=== PATIENT | male | born 1970 | race Caucasian/White ===

== ENCOUNTER 2021-05-03 13:55 | Emergency (ER) | payer OTHER, SELFPAY ==
[2021-05-03 13:56] VITALS: BP 126/87; PULSE 81; RESP 16; TEMP 36.3; O2SAT 99
--- NOTE | 2021-05-03 15:06 | ED.GENADULT ---
HPI - General Adult General Chief complaint: Skin/Abscess/Foreign Body Stated complaint: abcess ro right axilla Time Seen by Provider: 05/03/21 13:59 Source: patient Mode of arrival: ambulatory Limitations: no limitations History of Present Illness HPI narrative: Patient presents for evaluation of raised erythematous lesion to the right axillary region. He states he had a firm pliable mass about the size of a pea for the past several months. Mass increased to the size of a marble within the last few days. He contacted his primary care provider and has an appointment scheduled for this coming week. However it has since become erythematous and painful. He noted a small amount of drainage from the area yesterday. Denies any fever, chills, nausea, vomiting. He is not diabetic. He smokes 1 pack/day. No additional complaints or concerns. Related Data Allergies Allergy/AdvReac Type Severity Reaction Status Date / Time Penicillins Allergy Mild Unknown Verified 05/03/21 14:05 Review of Systems Review of Systems: CONSTITUTIONAL: Denies fever, chills, or sweats. EYES: Denies visual changes, redness, or discharge. ENT: Denies rhinorrhea, congestion, sore throat, or otalgia. CARDIOVASCULAR: Denies chest pain, palpitations, or edema. RESPIRATORY: Denies cough or dyspnea. GASTROINTESTINAL: Denies abdominal pain, nausea, vomiting, or diarrhea. GENITOURINARY: Denies dysuria or hematuria. SKIN: Reports erythematous raised lesion to the right axillary region MUSCULOSKELETAL: Reports pain in right axillary region. Denies back pain NEUROLOGIC: Denies headache, numbness, dizziness, or weakness. PSYCHIATRIC: Denies anxiety or depression. [facility] Past Medical History Medical History Hypertension Surgical History Surgical History H/O umbilical hernia repair Family History Family History Mother Colon cancer Father Colon cancer Social History Social History Smoking packs per day: 1 Smoking cigarettes per day: 20.0 Smoking status: Current every day smoker Alcohol intake: current Alcohol use details: social Substance use: never Living arrangements: with family Gender identity (if verbalized by the patient): Male Sexual Orientation (if Verbalized by the Patient): Straight or Heterosexual Spiritual care concerns: No Exam Narrative: GENERAL: Well-appearing, well-nourished, and in no acute distress. HEAD: Normocephalic, atraumatic. EYES: PERRLA and EOMI. ENT: Nares clear, no rhinorrhea or epistaxis. Mucous membranes moist. Oropharynx without tonsillar hypertrophy exudate or other lesions. Bilateral TMs pearly white nonbulging NECK: Supple. No adenopathy or masses. No carotid bruits or JVD CHEST: Clear to auscultation. No respiratory distress. No wheezes rales or rhonchi HEART: Regular rate and rhythm. No murmur heard. Normal peripheral pulses. ABDOMEN: Soft, nontender, nondistended, normal active bowel sounds. EXTREMITIES: Tenderness noted to the right axillary mass. Normal range of motion. No edema. SKIN: Approximately 3.5 cm raised erythematous fluctuant lesion to the right axillary region with surrounding erythema NEURO: No focal deficits. Alert and oriented x3. PSYCH: Normal mood and affect. Course Course Emergency Course: This is a 50-year-old male who presented with an erythematous swollen lesion to the right axillary region. Exam was consistent with infected sebaceous cyst. He had no systemic signs of infection. I&D was performed and patient was tolerated well. Instructed on wound care. He has a known allergy to PCN but is unsure of allergic response. He believes he has tolerated cephalexin in past. He was given 1st dose abx in Dept. He has an appt with PCP in t
[2021-05-03] MEDS: HYDROcodone/acetaminophen (*CRX) 5-325 MG TABLET 2 TAB PO (15:29)
[2021-05-03] MEDS: CEPHALEXIN 500 MG CAPSULE PO (16:55)
[2021-05-03 17:02] VITALS: BP 118/78; PULSE 78; RESP 18; O2SAT 99
== END 2021-05-03 17:04 | disposition home or self-care (01) ==
PROVIDERS: Emergency Provider Nurse Practitioner
DX: L72.3 Sebaceous cyst (principal); L08.9 Local infection of the skin and subcutaneous tissue, unspecified; I10 Essential (primary) hypertension; F17.210 Nicotine dependence, cigarettes, uncomplicated
CPT/HCPCS: 10060; 10061; 87070; 87205; 99283; A9270

== ENCOUNTER 2022-10-15 08:28 | Emergency (ER) | payer OTHER, SELFPAY ==
--- NOTE | ~2022-10-15 | CT_ITS ---
Non-contrast CT scan of the Abdomen and Pelvis Clinical indication: Abdominal pain, hematuria Technique: 2.5 mm axial scans were obtained through the abdomen and pelvis without intravenous or or al contrast. Dose reduction technique was used on this scan by utilizing automated exposure control a nd iterative reconstruction technique. The dose-length product (DLP) was 395.14 mGy-cm. COMPARISON: 10/11/2011 Findings: Images through the lung bases reveal no abnormalities. 5 mm proximal to mid left ureteral stone present, with mild left hydroureteronephrosis to this level. Additional punctate nonobstructing left renal stones are likely present. No right renal or right ure teral stone. No right hydronephrosis. The liver, spleen, pancreas, gallbladder, and adrenals appear normal. There is no aortic aneurysm. There is no evidence of bowel obstruction. Normal appendix. Images through the pelvis were performed. There is no evidence of ascites or lymphadenopathy. Urinary bladder unremarkable. Prostate gland and seminal vesicles are unremarkable. Impression: 5 mm proximal to mid left ureteral stone with mild left hydroureteronephrosis to this level. Probable punctate additional nonobstructing left renal stones. Reviewed, dictated and finalized at location . Impression: 5 mm proximal to mid left ureteral stone with mild left hydroureteronephrosis t o this level. Probable punctate additional nonobstructing left renal stones.
[2022-10-15 08:32] VITALS: BP 133/85; PULSE 61; RESP 18; TEMP 36.7; O2SAT 98
[2022-10-15 08:34] VITALS: BP 133/85; O2SAT 98
[2022-10-15 08:35] VITALS: O2SAT 99
[2022-10-15 08:54] VITALS: O2SAT 98
[2022-10-15 09:03] LABS: Basophils Absolute Auto 0.1 K/mm3 (0.0-0.1); Basophils Percent Auto 0.9 % (0.2-1.2); Eosinophils Absolute Auto 0.3 K/mm3 (0-0.3); Eosinophils Percent Auto 2.4 % (0-4.4); Hematocrit 45.9 % (42.0-52.0); Immature Granulocyte Absolute 0.07 K/mm3 (0.00-0.031); Immature Granulocyte Percent A 0.6 % (0-0.5); Lymphocytes Absolute Auto 2.68 K/mm3 (0.9-3.2); Lymphocytes Percent Auto 22.5 % (18.3-44.2); Mean Corpuscular HGB Conc 32.7 g/dl (32-36); Mean Corpuscular Hemoglobin 30.1 pg (26-34); Mean Corpuscular Volume 92.2 fl (80-100); Mean Platelet Volume 9.4 fl (7.4-10.4); Monocytes Absolute Auto 0.6 K/mm3 (0.1-0.6); Monocytes Percent Auto 5.2 % (2.6-8.5); Neutrophils Absolute Auto 8.1 K/mm3 (1.3-6.7); Neutrophils Percent Auto 68.4 % (45.5-73.1); Platelet Count Result 298 k/mm3 (150-375); Red Blood Count 4.98 M/mm3 (4.6-6.20); White Blood Count 11.9 K/mm3 (4.5-10.0)
[2022-10-15 09:18] LABS: Alanine Aminotransferase 29 U/L (6-50); Albumin Level 4.6 g/dL (3.5-5.1); Alkaline Phosphatase 104 U/L (38-126); Anion Gap 6 mmol/L (8-16); Aspartate Amino Transferase 31 U/L (17-59); Bilirubin,Total 0.5 mg/dL (0.2-1.3); Blood Urea Nitrogen 15 mg/dL (9-20); Calcium 8.5 mg/dL (8.4-10.2); Carbon Dioxide 28 mmol/L (22-30); Chloride 106 mmol/L (98-107); Estimated CRCL calculation 84 ml/min; Estimated Glomerular Filt Rate > 60; Glucose 162 mg/dL (65-110); Potassium 3.8 mmol/L (3.4-5.0); Sodium 140 mmol/L (137-145)
[2022-10-15 09:26] LABS: Appearance Urine Cloudy (Clear); Bacteria Urine None Seen /hpf; Bilirubin Urine Negative (Negative); Blood Urine 3+ (Negative); Calcium Oxalate Crystals Urine Present /hpf; Color Urine Dark Yellow (Yellow); Glucose Urine UA Negative (Negative); Granular Casts Urine Present /lpf; Ketones Urine Trace mg/dL (Negative); Leukocyte Esterase Ur Trace LEU/UL (Negative); Mucus Urine Present /lpf; Nitrate Urine Negative (Negative); Protein Urine 2+ mg/dL (Negative); RBC Urine >100 /hpf (0-2); Specific Grav Ur 1.026 (1.001-1.035); Squamous Epithelial Cell Urine Occasional /hpf (Few); pH Urine 5.5 (5.0-9.0)
--- NOTE | 2022-10-15 09:29 | ED.GENADULT ---
HPI - General Adult General Chief complaint: Urogenital-Male Stated complaint: kidney stone Time Seen by Provider: 10/15/22 08:38 History of Present Illness HPI narrative: 51-year-old male with history of kidney stones presenting to the ED for evaluation of left flank pain. Patient reports he started having the left flank pain last night and the pain does radiate around to his left lower quadrant. Patient states he passes approximately 10 kidney stones a year and has had previous follow-up with Dr Covington. Patient states that his urine did not appear to be bloody at home. Patient denies any chest pain or shortness of breath. Patient does have some nausea without vomiting. Patient denies any change in bowel habits. Related Data Allergies Allergy/AdvReac Type Severity Reaction Status Date / Time Penicillins Allergy Mild Unknown Verified 05/03/21 14:05 Review of Systems Review of Systems: All systems reviewed & are unremarkable except as noted in HPI and below PMFSH Past Medical History Medical History Hypertension Surgical History Surgical History H/O umbilical hernia repair Family History Family History Mother Colon cancer Father Colon cancer Social History Social History Smoking packs per day: 1 Smoking cigarettes per day: 20.0 Smoking status: Current every day smoker Alcohol intake: current Alcohol use details: social Substance use: never Living arrangements: with family Gender identity (if verbalized by the patient): Male Sexual Orientation (if Verbalized by the Patient): Straight or Heterosexual Spiritual care concerns: No Exam Narrative: APPEARANCE: Well appearing, no pain, no distress, well-nourished. HEAD: normocephalic, atraumatic. EYES: PERRLA/EOMI, conjunctivae clear. NOSE: Normal no drainage NECK: Supple. No adenopathy, no masses. RESPIRATORY: Airway patent, respirations nonlabored. Clear to auscultation bilaterally, no rales, rhonchi, wheezing. CARDIOVASCULAR: Regular rate and rhythm without murmurs rubs or gallops. ABDOMINAL: Soft, left lower quadrant and left CVA tenderness to palpation MUSCULOSKELETAL: Moves all extremities. Strength/ROM intact, No edema, No calf tenderness. NEURO: Alert. Cranial nerves II through XII intact. Good gait. Good coordination SKIN: Warm, dry. Normal Color Course Course Emergency Course: 51-year-old male presented ED for evaluation of left flank pain. Patient has UA and baseline labs ordered. Patient was provided IV medication for pain control and for nausea. Patient and family were updated on the plan for treatment and evaluation. All questions and concerns were addressed up to this point. On reevaluation patient states that his pain is improved. Patient does have a mild leukocytosis of 11.9. UA shows blood and red blood cells but no significant evidence of infection. CT scan did show a 5 mm ureteral calculi. Patient was updated on the results of the imaging and plan for treatment at home. Patient already does take Flomax. Patient was provided medications for pain and nausea control for home. Patient was also encouraged of close follow-up with urology. Patient believes he has previously seen Dr. Covington. Vital Signs Vital signs: Vital Signs Temperature 98.1 F 10/15/22 08:32 Pulse Rate 61 10/15/22 08:32 Respiratory Rate 18 10/15/22 08:32 Blood Pressure 133/85 10/15/22 08:32 Pulse Oximetry 98 10/15/22 08:32 Oxygen Delivery Room Air 10/15/22 08:32 Temperature 98.1 F 10/15/22 08:32 Pulse Rate 78 10/15/22 11:22 Respiratory Rate 16 10/15/22 11:22 Blood Pressure 112/87 10/15/22 11:22 Pulse Oximetry 96 10/15/22 11:22 Oxygen Delivery Room Air 10/15/22
[2022-10-15 09:30] LABS: Add Urine Microscopic? YES
[2022-10-15] MEDS: ONDANSETRON INJ 4 MG/2 ML VIAL IV PUSH (09:39)
[2022-10-15] MEDS: HYDROmorphone HCL INJ (*CRX) 1 MG/ML SYR 0.5 MG IV PUSH (09:39)
--- NOTE | 2022-10-15 09:42 | PC.NURSE ---
pt to CT via stretcher at this time
[2022-10-15 11:22] VITALS: BP 112/87; PULSE 78; RESP 16; O2SAT 96
== END 2022-10-15 11:25 | disposition home or self-care (01) ==
PROVIDERS: Emergency Provider Emergency Medicine; PCP Family Medicine
DX: N13.2 Hydronephrosis with renal and ureteral calculous obstruction (principal); I10 Essential (primary) hypertension
CPT/HCPCS: 36415; 74176; 80053; 81001; 85025; 87086; 96374; 96375; 99284; J1170; J2405

== ENCOUNTER 2024-02-19 07:14 | Emergency (ER) | payer OTHER, SELFPAY ==
[2024-02-19 07:18] VITALS: BP 101/71; PULSE 101; RESP 16; TEMP 37.4; O2SAT 98
[2024-02-19 08:25] VITALS: BP 101/67; PULSE 76; RESP 19; O2SAT 98
[2024-02-19] MEDS: KETOROLAC 15 MG/ML VIAL (*BKC) IV PUSH (08:26)
[2024-02-19] MEDS: diphenhydrAMINE HCl INJ 50 MG/ML VIAL 25 MG IV PUSH (08:28)
[2024-02-19] MEDS: PROCHLORPERAZINE EDISYLATE 10 MG/2 ML VIAL IV PUSH (08:28)
[2024-02-19 08:31] LABS: Basophils Percent Auto 0.1 % (0.2-1.2); Eosinophils Absolute Auto 0.6 K/mm3 (0-0.3); Eosinophils Percent Auto 7.2 % (0-4.4); Hematocrit 42.2 % (42.0-52.0); Hemoglobin 14.1 g/dL (14.0-18.0); Immature Granulocyte Absolute 0.04 K/mm3 (0.00-0.031); Immature Granulocyte Percent A 0.5 % (0-0.5); Lymphocytes Absolute Auto 0.79 K/mm3 (0.9-3.2); Mean Corpuscular HGB Conc 33.4 g/dl (32-36); Mean Corpuscular Hemoglobin 29.6 pg (26-34); Mean Corpuscular Volume 88.5 fl (80-100); Mean Platelet Volume 9.3 fl (7.4-10.4); Monocytes Absolute Auto 0.5 K/mm3 (0.1-0.6); Monocytes Percent Auto 5.7 % (2.6-8.5); Neutrophils Absolute Auto 6.8 K/mm3 (1.3-6.7); Neutrophils Percent Auto 77.5 % (45.5-73.1); Platelet Count Result 231 k/mm3 (150-375); Red Blood Count 4.77 M/mm3 (4.6-6.20); Red Cell Distribution Width 13.1 % (11.5-14.5); White Blood Count 8.8 K/mm3 (4.5-10.0)
[2024-02-19 08:37] LABS: Add Urine Microscopic? YES; Appearance Urine Clear (Clear); Bacteria Urine None Seen /hpf; Bilirubin Urine Negative (Negative); Blood Urine Negative (Negative); Color Urine Yellow (Yellow); Glucose Urine UA Negative (Negative); Ketones Urine 1+ mg/dL (Negative); Leukocyte Esterase Ur Trace LEU/UL (Negative); Nitrate Urine Negative (Negative); Non Pathogenic Casts 0-2; Protein Urine Trace mg/dL (Negative); RBC Urine 0-2 /hpf (0-2); Specific Grav Ur 1.023 (1.001-1.035); Squamous Epithelial Cell Urine Occasional /hpf (Few); WBC Urine 0-5 /hpf (0-3); pH Urine 5.5 (5.0-9.0)
[2024-02-19 08:40] LABS: Lactic Acid Reflex 0.9 mmol/L (0.7-2.0)
[2024-02-19 08:42] LABS: Alanine Aminotransferase 38 U/L (6-50); Albumin Level 4.4 g/dL (3.5-5.1); Alkaline Phosphatase 134 U/L (38-126); Anion Gap 8 mmol/L (4-12); Aspartate Amino Transferase 36 U/L (17-59); Bilirubin,Total 0.7 mg/dL (0.2-1.3); Blood Urea Nitrogen 22 mg/dL (9-20); Calcium 9.1 mg/dL (8.4-10.2); Carbon Dioxide 24 mmol/L (22-30); Chloride 101 mmol/L (98-107); Creatine Kinase 150 U/L (55-170); Estimated CRCL calculation 48 ml/min; Estimated Glomerular Filt Rate 53; Glucose 99 mg/dL (65-110); Potassium 4.4 mmol/L (3.4-5.0); Sodium 133 mmol/L (137-145)
[2024-02-19] MEDS: SODIUM CHLORIDE 0.9% IV 1,000 ML 999 ML IV CONT (09:04)
[2024-02-19 09:05] VITALS: RESP 20; O2SAT 97
--- NOTE | 2024-02-19 09:19 | ED.GENADULT ---
HPI - General Adult General Chief complaint: Unspecified Stated complaint: joint pain Time Seen by Provider: 02/19/24 08:00 History of Present Illness HPI narrative: Patient is a 53-year-old gentleman who presents emergency department with chief complaint of body aching and cramping. The patient reports that he was diagnosed with an ear infection on Wednesday started on Bactrim patient reports he has been taking the Bactrim and noticed that his body has been hurting all over. Patient reports all of his joints hurt reports that he feels very weak also reports that he has had a headache that is described as frontal the patient denies any focal neurological deficit Related Data Allergies Allergy/AdvReac Type Severity Reaction Status Date / Time Penicillins Allergy Mild Unknown Verified 02/19/24 07:22 Review of Systems Review of Systems: A 10 system review of systems was completed on the patient and is negative except for what is stated in the HPI. Nursing and ancillary documentation was reviewed. PMFSH Past Medical History Medical History Hypertension Surgical History Surgical History H/O umbilical hernia repair Family History Family History Mother Colon cancer Father Colon cancer Social History Social History Smoking packs per day: 1 Smoking cigarettes per day: 20.0 Smoking status: Current every day smoker Alcohol intake: current Alcohol use details: social Substance use: never Living arrangements: with family Gender identity (if verbalized by the patient): Male Sexual Orientation (if Verbalized by the Patient): Straight or Heterosexual Spiritual care concerns: No Exam Narrative: GENERAL: Well-appearing, well-nourished, and in no acute distress. HEAD: Normocephalic, atraumatic. EYES: PERRLA and EOMI. ENT: Nares clear, no rhinorrhea or epistaxis. Mucous membranes moist. Right tympanic membrane is erythematous NECK: Supple. CHEST: Clear to auscultation. No respiratory distress. HEART: Regular rate and rhythm. No murmur heard. Normal peripheral pulses. ABDOMEN: Soft, nontender, nondistended, normal active bowel sounds. EXTREMITIES: Normal range of motion. No edema. SKIN: Warm, dry, no rash. NEURO: No focal deficits. Alert and oriented x3. PSYCH: Normal mood and affect. Course Vital Signs Vital signs: Vital Signs Temperature 37.4 C 02/19/24 07:18 Pulse Rate 101 H 02/19/24 07:18 Respiratory Rate 16 02/19/24 07:18 Blood Pressure 101/71 02/19/24 07:18 Pulse Oximetry 98 02/19/24 07:18 Oxygen Delivery Room Air 02/19/24 07:18 Temperature 37.4 C 02/19/24 07:18 Pulse Rate 76 02/19/24 08:25 Respiratory Rate 20 02/19/24 09:05 Blood Pressure 101/67 02/19/24 08:25 Pulse Oximetry 97 02/19/24 09:05 Oxygen Delivery Room Air 02/19/24 07:18 Medical Decision Making MDM Narrative Medical decision making narrative: Differential diagnosis includes dehydration, otitis, electrolyte abnormality, of rhabdomyolysis, Laboratory studies were obtained on the patient which showed normal CBC CMP showed a creatinine of 1.4 a BUN of 22 magnesium was 2.0 lactic acid 0.9 potassium is 4.4 CK was normal urinalysis showed trace leukocyte esterase Patient received a L of normal saline The patient be changed from Bactrim to cefdinir Patient received IV fluids the patient be encouraged to stay well hydrated Vital Signs Vital Signs: Vital Signs Temperature 37.4 C 02/19/24 07:18 Pulse Rate 101 H 02/19/24 07:18 Respiratory Rate 16 02/19/24 07:18 Blood Pressure 101/71 02/19/24 07:18 Pulse Oximetry 98 02/19/24 07:18 Oxygen Delivery Room Air 02/19/24 07:18 Temperature 37.4 C 02/19/24 07:18 Pulse Rate 76 02/19/24 08:25 Respiratory Rate 20 02/19/24 09:05 Blood Pressure 101/67 02/19/24 08:25 Pulse Oximetry 97 02/19/24 09:05 Oxygen Delivery Room Air 02/19/24 07:18 Lab Data 02/19/24 08:24 02/19/24 08:24 Labs: Lab Results 02/19/24 02/19/24 Range/Units 08:24 08:26 WBC 8.8 (4.5-10.0) K/mm3 RBC 4.77 (4.6-6.20) M/mm3 Hgb 14.1 (14.0-18.0) g/dL Hct 42.2 (42.0-52.0) % MCV 88.5 (80-100) fl MCH 29.6 (26-34) pg MCHC 33.4 (32-36) g/dl RDW 13.1 (11.5-14.5) % Plt Count 231 (150-375) k/mm3 MPV 9.3 (7.4-10.4) fl Immature Gran % (Auto) 0.5 (0-0.5) % Neut % (Auto) 77.5 H (45.5-73.1) % Lymph % (Auto) 9.0 L (18.3-44.2) % [place] % (Auto) 5.7 (2.6-8.5) % Eos % (Auto) 7.2 H (0-4.4) % Baso % (Auto) 0.1 L (0.2-1.2) % Lymph # (Auto) 0.79 L (0.9-3.2) K/mm3 [place] # (Auto) 0.5 (0.1-0.6) K/mm3 Eos # (Auto) 0.6 H (0-0.3) K/mm3 Baso # (Auto) 0.0 (0.0-0.1) K/mm3 Abs Immat Gran (auto) 0.04 H (0.00-0.031) K/mm3 Absolute Neuts (auto) 6.8 H (1.3-6.7) K/mm3 Absolute Nucleated RBC 0.000 (0.0-0.012) K/mm3 Nucleated RBC % 0.0 (0.0-0.2) % Sodium 133 L (137-145) mmol/L Potassium 4.4 (3.4-5.0) mmol/L Chloride 101 (98-107) mmol/L Carbon Dioxide 24 (22-30) mmol/L Anion Gap 8 (4-12) mmol/L BUN 22 H (9-20) mg/dL Creatinine 1.40 H (0.7-1.3) mg/dL Estim Creat Clear Calc 48 ml/min Estimated GFR 53 L (59 - ) Glucose 99 (65-110) mg/dL Lactic Acid 0.9 (0.7-2.0) mmol/L Calcium 9.1 (8.4-10.2) mg/dL Magnesium 2.0 (1.6-2.3) mg/dL Total Bilirubin 0.7 (0.2-1.3) mg/dL AST 36 (17-59) U/L ALT 38 (6-50) U/L Alkaline Phosphatase 134 H (38-126) U/L Total Creatine Kinase 150 (55-170) U/L Total Protein 8.0 (6.3-8.2) g/dL Albumin 4.4 (3.5-5.1) g/dL Urine Color Yellow (Yellow) Urine Appearance Clear (Clear) Urine pH 5.5 (5.0-9.0) Ur Specific [place] 1.023 (1.001-1.035) Urine Protein Trace (Negative) mg/dL Urine Glucose (UA) Negative (Negative) mg/dL Urine Ketones 1+ H (Negative) mg/dL Ur Blood (Man) Negative (Negative) Urine Nitrate Negative (Negative) Urine Bilirubin Negative (Negative) Urine Urobilinogen 1.0 (<2.0) mg/dL Leukocyte Esterase Rfl Trace H (Negative) DIANNE/UL Urine RBC 0-2 (0-2) /hpf Urine WBC 0-5 (0-3) /hpf Ur Squamous Epith Cells Occasional (Few) /hpf Urine Bacteria None seen /hpf Urine Casts 0-2 Discharge Plan Discharge Clinical Impression: Dehydration, Acute right otitis media Patient Disposition: Home, Self-Care Condition: Stable Instructions: Antibiotic Form, Dehydration (ED), Ear Infection (ED) Prescriptions: New cefdinir 300 mg capsule 300 mg PO Q12H 10 Days Qty: 20 0RF No Action sulfamethoxazole-trimethoprim [Bactrim DS] 800-160 mg tablet 1 tablet PO Q12H Qty: 20 0RF cephalexin 500 mg capsule 500 mg PO Q6H Qty: 40 0RF hydrocodone-acetaminophen 5-325 mg tablet 1 - 2 tablet PO Q6H PRN (Reason: pain) Qty: 15 0RF hydrocodone-acetaminophen 5-325 mg tablet 1 tablet PO Q8H PRN (Reason: pain) Qty: 14 0RF ondansetron 4 mg tablet,disintegrating 4 mg PO Q8H PRN (Reason: nausea and vomiting) Qty: 14 0RF Follow-up/Referrals: Harms,Lucien Duff M.D. [Primary Care Provider] - Time of Disposition: 10:28
[2024-02-19 10:52] VITALS: BP 100/77; PULSE 88; RESP 19; TEMP 36.6; O2SAT 98
== END 2024-02-19 10:53 | disposition home or self-care (01) ==
PROVIDERS: Emergency Provider Emergency Medicine; PCP Family Medicine
DX: E86.0 Dehydration (principal); H66.91 Otitis media, unspecified, right ear; I10 Essential (primary) hypertension; F17.210 Nicotine dependence, cigarettes, uncomplicated
CPT/HCPCS: 36415; 80053; 81001; 82550; 83605; 83735; 85025; 96361; 96374; 96375; 99284; J0780; J1200; J1885; J7030